=== PATIENT | male | born 1935 | race Caucasian/White ===

== ENCOUNTER 2022-05-12 15:01 | Emergency (ER) | payer BC, MEDICARE ==
[~2022-05-12] VITALS: Ht 185.4 cm; Wt 96.0 kg
[~2022-05-12 15:01] MED LIST: BENICAR; METFORMIN
[2022-05-12 15:45] VITALS: BP 139/66
== END 2022-05-12 16:43 | disposition home or self-care (01) ==
LOC: ER 15:01
DX: Z00.00 Encounter for general adult medical examination without abnormal findings (principal); E11.65 Type 2 diabetes mellitus with hyperglycemia; I10 Essential (primary) hypertension; Z88.0 Allergy status to penicillin; Z98.890 Other specified postprocedural states
CPT/HCPCS: 82962; 99282

== ENCOUNTER 2022-07-08 19:01 | Emergency (ER) | payer BC, MEDICARE ==
[~2022-07-08] VITALS: Ht 185.4 cm; Wt 91.6 kg
[2022-07-08 19:13] VITALS: BP 136/73
== END 2022-07-08 20:45 | disposition home or self-care (01) ==
LOC: ER 19:01
DX: Z00.00 Encounter for general adult medical examination without abnormal findings (principal); E11.9 Type 2 diabetes mellitus without complications; I10 Essential (primary) hypertension
CPT/HCPCS: 82962; 99281; 99282